=== PATIENT | female | born 1945 | race Caucasian/White ===

== ENCOUNTER 2017-08-28 20:45 | Emergency (ER) | payer MEDICARE, OTHER ==
[2017-08-28 20:55] VITALS: BP 156/63
--- NOTE | 2017-08-28 22:15 | ER Document Report ---
ED Snake Bite - General Mode of Arrival: Ambulatory Information source: Patient TRAVEL OUTSIDE OF THE [place] IN LAST 30 DAYS: No - General Chief Complaint: Snake Bite Stated Complaint: POSSIBLE SNAKE BITE Notes: 71-year-old female that presents with possible snake bite to left calf. Patient states she was in her garden and she felt something bite her, she looked down and saw a slightly reddish orange snake. Patient states she has extensive knowledge of snakes and does not think it was a poisonous one. Patient denies any usage of blood thinners. (ROD HAMMER) - Related Data Allergies/Adverse Reactions: Sulfa (Sulfonamide Antibiotics) Allergy (Verified 08/28/17 21:20) Past Medical History - General Information source: Patient - Social History Smoking Status: Never Smoker Cigarette use (# per day): No Frequency of alcohol use: None Drug Abuse: None Lives with: Family Family History: Reviewed & Not Pertinent Patient has suicidal ideation: No Patient has homicidal ideation: No - Past Medical History Cardiac Medical History: Reports: Hx Hypercholesterolemia, Hx Hypertension Past Surgical History: Reports: Hx Abdominal Surgery - umbilical hernia repair, Hx Section - x2, Hx Hysterectomy Review of Systems - Review of Systems Constitutional: No symptoms reported EENT: No symptoms reported Cardiovascular: No symptoms reported Respiratory: No symptoms reported Gastrointestinal: No symptoms reported Genitourinary: No symptoms reported Female Genitourinary: No symptoms reported Musculoskeletal: No symptoms reported Skin: Other - possible snake bite Hematologic/Lymphatic: No symptoms reported Neurological/Psychological: No symptoms reported -: Yes All other systems reviewed and negative Physical Exam - Vital signs Vitals: Temp Pulse Resp BP Pulse Ox 98.9 F 75 16 156/63 H 96 08/28/17 20:53 08/28/17 20:53 08/28/17 20:53 08/28/17 20:53 08/28/17 20:53 - Notes Notes: Physical Exam: General: Alert, appears well. HEENT: Normocephalic. Atraumatic. PERRLA. Extraocular movements intact. Oropharynx clear. Cardiovascular: Regular rate and rhythm. Respiratory: No respiratory distress. Clear and equal breath sounds bilaterally. Neck: Supple. Respiratory: No respiratory distress. Abdominal: Normal Inspection. No distension. Extremities: Moves all four extremities. Neurological: Normal cognition. AAOx4. Normal speech. Psychological: Normal affect. Normal Mood. Skin: Excoriation over left calf without induration or fluctuance (ROD HAMMER ) Course - Re-evaluation Re-evalutation: 08/28/17 22:[address] as patient left AGAINST MEDICAL ADVICE stating that she would rather not have her blood drawn and she feels fine. I did discuss the risks of not obtaining test and she has a capacity to understand with those risks are. I did urge to her if she begins to develop eating from any areas to return immediately for reevaluation. Patient signed AMA prior to leaving (MARISELA RAMSAY ) - Vital Signs Vital signs: Temp Pulse Resp BP Pulse Ox 98.9 F 75 16 156/63 H 96 08/28/17 20:53 08/28/17 20:53 08/28/17 20:53 08/28/17 20:53 08/28/17 20:53 Discharge - Discharge Clinical Impression: Encounter for possible snakebite Disposition: AGAINST MEDICAL ADVICE Referrals: JOAN DIETZ MD [Primary Care Provider] - Follow up as needed Scribe Attestation: 08/31/17 19:09 I personally performed the services described documentation, reviewed and edited the documentation which was dictated to describe my presence, and it accurately records my words and actions. (MARISELA RAMSAY) Scribe Documentation - Scribe Written by Maxwell:: Maxwell Zacarias, 08/28/2017 [id number] acting as scribe for :: Ricardo
== END 2017-08-28 22:32 | disposition left against medical advice (07) ==
LOC: ER 20:45
DX: T63.001A Toxic effect of unspecified snake venom, accidental (unintentional), initial encounter (principal); Y92.9 Unspecified place or not applicable; I10 Essential (primary) hypertension
CPT/HCPCS: 99283

== ENCOUNTER → 2017-11-28 | Outpatient (CLI) | payer MEDICARE, OTHER ==
[2017-11-28 09:51] LABS: ALANINE AMINOTRANSFERASE 28 U/L (9-52); ALBUMIN 4.4 g/dL (3.5-5.0); ALKALINE PHOSPHATASE 84 U/L (38-126); ANION GAP 7 (5-19); ASPARTATE AMINO TRANSFERASE 22 U/L (14-36); BILIRUBIN,DIRECT 0.4 mg/dL (0.0-0.4); BILIRUBIN,TOTAL 0.6 mg/dL (0.2-1.3); BLOOD UREA NITROGEN 22 mg/dL (7-20); CALCIUM 9.5 mg/dL (8.4-10.2); CARBON DIOXIDE 29 mmol/L (22-30); CHLORIDE 104 mmol/L (98-107); GLUCOSE 102 mg/dL (75-110); POTASSIUM 3.9 mmol/L (3.6-5.0); SODIUM 139.8 mmol/L (137-145); TOTAL PROTEIN 7.5 g/dL (6.3-8.2); TRIGLYCERIDES 296 mg/dL (<150)
[2017-11-28 10:01] LABS: CHOLESTEROL 346.71 mg/dL (0-200); VLDL CHOLESTEROL 59.2 mg/dL (10-31)
[2017-11-28 10:02] LABS: DIRECT LDL 236 mg/dL (<100)
== END ==
LOC: LAB 09:14
PROVIDERS: ATTEND Internal Medicine Cardiovascular Disease
DX: E78.2 Mixed hyperlipidemia (principal); I10 Essential (primary) hypertension; Z79.899 Other long term (current) drug therapy
CPT/HCPCS: 36415; 80048; 80061; 80076

== ENCOUNTER → 2018-05-03 | Outpatient (CLI) | payer MEDICARE, OTHER ==
[2018-05-03 12:04] LABS: HEMATOCRIT 42.1 % (36.0-47.0); HEMOGLOBIN 14.4 g/dL (12.0-15.5); MEAN CORPUSCULAR HEMOGLOBIN 27.4 pg (27.0-33.4); MEAN CORPUSCULAR HGB CONC 34.3 g/dL (32.0-36.0); MEAN CORPUSCULAR VOLUME 80 fl (80-97); PLATELET COUNT 257 10^3/uL (150-450); RED BLOOD COUNT 5.27 10^6/uL (3.72-5.28); RED CELL DISTRIBUTION WIDTH 15.3 % (11.5-14.0); WHITE BLOOD COUNT 7.7 10^3/uL (4.0-10.5)
[2018-05-03 12:21] LABS: ALANINE AMINOTRANSFERASE 31 U/L (9-52); ALBUMIN 4.5 g/dL (3.5-5.0); ALKALINE PHOSPHATASE 96 U/L (38-126); ANION GAP 6 (5-19); ASPARTATE AMINO TRANSFERASE 24 U/L (14-36); BILIRUBIN,DIRECT 0.1 mg/dL (0.0-0.4); BILIRUBIN,TOTAL 0.6 mg/dL (0.2-1.3); BLOOD UREA NITROGEN 22 mg/dL (7-20); CALCIUM 9.9 mg/dL (8.4-10.2); CARBON DIOXIDE 32 mmol/L (22-30); CHLORIDE 103 mmol/L (98-107); CHOLESTEROL 246.78 mg/dL (0-200); GLUCOSE 103 mg/dL (75-110); POTASSIUM 4.3 mmol/L (3.6-5.0); SODIUM 140.6 mmol/L (137-145); TOTAL PROTEIN 7.4 g/dL (6.3-8.2); TRIGLYCERIDES 218 mg/dL (<150)
[2018-05-03 12:32] LABS: DIRECT LDL 162 mg/dL (<100)
[2018-05-03 12:39] LABS: VLDL CHOLESTEROL 43.6 mg/dL (10-31)
== END ==
LOC: LAB 11:42
PROVIDERS: ATTEND Physician Assistant
DX: I10 Essential (primary) hypertension (principal); E78.2 Mixed hyperlipidemia; Z79.899 Other long term (current) drug therapy
CPT/HCPCS: 36415; 80048; 80061; 80076; 85027

== ENCOUNTER 2019-05-03 09:25 | Day surgery (SDC) | payer MEDICARE, OTHER ==
[~2019-05-03 09:25] MED LIST: LIDOCAINE 2% INJ-PF (20 MG/ML) 10 ML AMPUL ONE; PROPOFOL INJ 200 MG/20 ML VIAL IV ONE
--- NOTE | 2019-05-03 10:43 | Operative Report ---
Operative Report DATE OF SURGERY: 05/03/19 Operative Report: The risks benefits and alternatives of the procedure explained to the patient in detail and informed consent is obtained.A GIF Olympus video scope was inserted into the patient's mouth and hypopharynx, the esophagus is identified intubated and insufflated ,the scope was then advanced through the esophagus stomach and duodenum, retroflexion maneuver is done the esophagus stomach and first and second portions of the duodenum examined PREOPERATIVE DIAGNOSIS: Dyspepsia POSTOPERATIVE DIAGNOSIS: Duodenitis status post biopsy. Gastritis status post biopsy OPERATION: EGD with biopsy SURGEON: DWIGHT PRAKASH ANESTHESIA: LMAC TISSUE REMOVED OR ALTERED: As noted above. COMPLICATIONS: None. ESTIMATED BLOOD LOSS: None. INTRAOPERATIVE FINDINGS: As noted above. PROCEDURE: Patient tolerated the procedure well. No immediate postprocedure complications are noted. Patient is discharged in good condition. Discharge date 05/03/2019. Discharge diet: Regular. Discharge activity: Regular. 2 to 3-week follow-up to discuss findings. Patient is instructed to call the office or proceed to the emergency room should there be any further problems questions. Wait on the pathology.
--- NOTE | 2019-05-03 11:07 | Operative Report ---
Operative Report DATE OF SURGERY: 05/03/19 Operative Report: The risk, benefits and alternatives of the procedure including the risk of bleeding, perforation requiring surgery have been explained to the patient in detail and informed consent has been obtained. Patient is placed in a left, lateral decubital position. Timeout was called. Propofol medication is administered. Rectal examination is done which did not reveal any masses tears or fissures An Olympus videoscope was inserted into the patient's rectum. Cecum is reached. Prep was good. All the segments are visualized. Retroflexion maneuvers performed. PREOPERATIVE DIAGNOSIS: Abdominal pain. Colorectal cancer screening POSTOPERATIVE DIAGNOSIS: Right side colon Inflammation status post biopsy. Internal hemorrhoids. Diverticulosis OPERATION: Colonoscopy with biopsy SURGEON: DWIGHT PRAKASH ANESTHESIA: LMAC TISSUE REMOVED OR ALTERED: As noted above. COMPLICATIONS: None. ESTIMATED BLOOD LOSS: None. INTRAOPERATIVE FINDINGS: As noted above. PROCEDURE: Patient tolerated the procedure well. No immediate postprocedure complications are noted. Patient is discharged in good condition. Discharge date 05/03/2019. Discharge diet: Regular. Discharge activity: Regular. 2 to 3-week follow-up to discuss f indings. Patient is instructed to call the office or proceed to the emergency room should there be any further problems or questions. Wait on the pathology. May require surgical referral for possible complications regarding previous mesh placement
[2019-05-03 11:47] VITALS: BP 97/48
== END 2019-05-03 11:50 | disposition home or self-care (01) ==
LOC: END 09:25
PROVIDERS: ATTEND Internal Medicine Gastroenterology
DX: Z12.11 Encounter for screening for malignant neoplasm of colon (principal); K21.9 Gastro-esophageal reflux disease without esophagitis; K52.9 Noninfective gastroenteritis and colitis, unspecified; K64.8 Other hemorrhoids; K57.30 Diverticulosis of large intestine without perforation or abscess without bleeding; Z79.899 Other long term (current) drug therapy; Z79.82 Long term (current) use of aspirin
CPT/HCPCS: 43239; 45380; 88305 ×2; 00813; J2704; J3490; 813

== ENCOUNTER → 2020-02-07 | Outpatient (CLI) | payer MEDICARE, OTHER ==
[2020-02-07 10:08] LABS: ALBUMIN 4.2 g/dL (3.5-5.0); ALKALINE PHOSPHATASE 92 U/L (38-126); ANION GAP 7 (5-19); ASPARTATE AMINO TRANSFERASE 38 U/L (14-36); BILIRUBIN,TOTAL 0.7 mg/dL (0.2-1.3); BLOOD UREA NITROGEN 15 mg/dL (7-20); CALCIUM 9.9 mg/dL (8.4-10.2); CARBON DIOXIDE 31 mmol/L (22-30); CHLORIDE 103 mmol/L (98-107); CHOLESTEROL 176.45 mg/dL (0-200); GLUCOSE 99 mg/dL (75-110); POTASSIUM 4.2 mmol/L (3.6-5.0); TOTAL PROTEIN 6.9 g/dL (6.3-8.2); TRIGLYCERIDES 135 mg/dL (<150)
[2020-02-07 10:20] LABS: DIRECT LDL 103 mg/dL (<100)
== END ==
LOC: OD 09:06
PROVIDERS: ATTEND Physician Assistant
DX: E78.2 Mixed hyperlipidemia (principal); I10 Essential (primary) hypertension; Z79.899 Other long term (current) drug therapy
CPT/HCPCS: 36415; 80048; 80061; 80076